=== PATIENT | male | born 1935 | race Caucasian/White ===

== ENCOUNTER → 2016-09-17 | Outpatient (CLI) | payer OTHER, BC ==
[~2016-09-17] MED LIST: AMT50 PO; ASPI-390 PO; ASPI325T45 PO; BUTA50TA6 PO; CLOB-65 EXT; CLOP1TAB15 PO; DOCU-94 PO; FINA5TAB PO; GLUCTAB18 PO; LOSA1TAB PO; LOSA1TAB38 PO; METO100T44 PO; MULT-506 PO; NTRGSL/4 UT; OMEP40CA36 PO; PRLSR20 PO; RST15 PO; SIMV40TA2 PO; TAMS0.4C38 PO; TEMA30CA4 PO
== END | disposition home or self-care (01) ==
LOC: C.RDSM 12:48
PROVIDERS: ATTEND Physical Medicine & Rehabilitation Sports Medicine
DX: Z47.1 Aftercare following joint replacement surgery (principal); Z96.651 Presence of right artificial knee joint

== ENCOUNTER → 2016-12-03 | Outpatient (CLI) | payer OTHER, BC ==
[~2016-12-03] MED LIST changes: -AMT50 PO; -BUTA50TA6 PO; -FINA5TAB PO; -GLUCTAB18 PO; -LOSA1TAB38 PO; -METO100T44 PO; +METO1TAB69 PO; -PRLSR20 PO; -TEMA30CA4 PO
[2016-12-03 18:08] LABS: BASO % 0.5 %; BASO ABS # 0.03 K/uL (0-0.2); COMPLETE YES; EOS % 1.7 %; HEMATOCRIT 38.2 % (42-52); IG% 0.2 %; LYMPH % 17.8 %; LYMPH ABS # 1.07 K/uL (1.2-3.4); MEAN CELL VOLUME 85.8 fL (80-100); MEAN CORPUSCULAR HGB CONC 33.8 g/dl (32-36); MEAN PLATELET VOLUME 10.5 fL (7.4-10.4); NEUT % 65.8 %; PLATELET COUNT 209 K/uL (130-400); RED BLOOD COUNT 4.45 M/uL (4.7-6.1); WHITE BLOOD COUNT 6.01 K/uL (4.8-10.8)
[2016-12-03 18:44] LABS: BLOOD UREA NITROGEN 19 mg/dl (7-18); CARBON DIOXIDE 28 mmol/L (21-32); CHLORIDE 107 mmol/L (98-107); GLUCOSE 92 mg/dl (70-99); SODIUM 142 mmol/L (136-145)
[2016-12-03 18:49] LABS: FERRITIN 20.5 ng/ml (8.0-388.0); PHOSPHORUS 2.5 mg/dl (2.5-4.9)
== END | disposition home or self-care (01) ==
LOC: C.LABMFLN 12:20
PROVIDERS: ATTEND Family Medicine
DX: D50.0 Iron deficiency anemia secondary to blood loss (chronic) (principal); I10 Essential (primary) hypertension

== ENCOUNTER → 2016-12-17 | Outpatient (CLI) | payer OTHER, BC ==
--- NOTE | 2016-12-17 12:04 | DIAGNOSTIC IMAGING REPORT ---
RIGHT SHOULDER MIN 2 VIEWS CLINICAL HISTORY: RIGHT SHOULDER PAIN Right pain COMPARISON: None. DISCUSSION: Moderate degenerative change right acromioclavicular joint. Minimal degenerative change glenohumeral joint. No acute bony abnormality. No abnormal soft tissue calcifications. There is no evidence for soft tissue swelling. IMPRESSION: Moderate degenerative change primarily of the acromioclavicular joint. No acute process. The above report was generated using voice recognition software. It may contain grammatical, syntax or spelling errors. Electronically signed by: Jamarcus Conrad M.D. 12/17/2016 12:03 PM Dictated Date/Time: 12/17/2016 12:02 PM
== END | disposition home or self-care (01) ==
LOC: C.RDSM 12:14
PROVIDERS: ATTEND Internal Medicine
DX: M25.511 Pain in right shoulder (principal)

== ENCOUNTER → 2017-03-18 | Outpatient (CLI) | payer OTHER, BC ==
[~2017-03-18] MED LIST changes: +AMT50 PO; +BUTA50TA6 PO; +FINA5TAB PO; +GLUCTAB18 PO; +LOSA1TAB38 PO; +METO100T44 PO; -METO1TAB69 PO; +PRLSR20 PO; +TEMA30CA4 PO
== END | disposition home or self-care (01) ==
LOC: C.RDSM 13:15
PROVIDERS: ATTEND Physical Medicine & Rehabilitation Sports Medicine
DX: M17.0 Bilateral primary osteoarthritis of knee (principal); Z96.651 Presence of right artificial knee joint; M25.511 Pain in right shoulder; M25.561 Pain in right knee; M25.562 Pain in left knee

== ENCOUNTER → 2017-04-23 | Day surgery (SDC) | payer OTHER, BC ==
[2017-03-28 14:16] VITALS: Ht 180.3 cm; Wt 90.0 kg
[2017-03-29 12:21] LABS: BASO % 0.3 %; BASO ABS # 0.02 K/uL (0-0.2); COMPLETE YES; EOS % 1.5 %; HEMATOCRIT 44.7 % (42-52); IG% 0.3 %; LYMPH ABS # 1.05 K/uL (1.2-3.4); MEAN CORPUSCULAR HEMOGLOBIN 29.3 pg (25-34); MEAN CORPUSCULAR HGB CONC 32.2 g/dl (32-36); MEAN PLATELET VOLUME 10.8 fL (7.4-10.4); MONO % 12.5 %; NEUT % 71.4 %; PLATELET COUNT 252 K/uL (130-400); RED BLOOD COUNT 4.91 M/uL (4.7-6.1); WHITE BLOOD COUNT 7.52 K/uL (4.8-10.8)
[2017-03-29 12:44] LABS: BUN/CREATININE RATIO 22.3 (10-20); CALCIUM 8.8 mg/dl (8.5-10.1); CREATININE 1.05 mg/dl (0.60-1.40); POTASSIUM 4.2 mmol/L (3.5-5.1)
[~2017-04-23] VITALS: Ht 180.3 cm; Wt 90.0 kg
[~2017-04-23] MED LIST changes: -ASPI-390 PO; -ASPI325T45 PO; +ATROPINE SULFATE 0.1 MG/ML 5ML SYR IV PRN; +BUPIVACAINE/EPINEPHRINE 0.5% MPF 1:200,000 30 ML VIAL ONE; +CEFAZOLIN 2000MG IV PUSH 10 ML IV SCH; -CLOB-65 EXT; +DEXAMETHASONE SOD INJ 4 MG/ML VIAL ONE; +EpHEDrine SULFATE 50MG/5ML SYR ONE; +EpHEDrine SULFATE INJ 50 MG/ML AMP IV PRN; +EpINEphrine HCL INJ 1 MG/ML 5ML SYRINGE ONE; +EpINEphrine INJ 1MG/ML AMP 1 MG/ML AMP ONE; +FENTANYL CITRATE INJ 50 MCG/1 ML 2 ML VIAL IV PRN; +FENTANYL CITRATE INJ 50 MCG/1 ML 2 ML VIAL ONE; +LACTATED RINGER'S 1000ML 1,000 ML IV SCH; +LIDOCAINE HCL 2% 2 ML VIAL (20MG/ML) ONE; -LOSA1TAB PO; +MIDAZOLAM HCL 1 MG/ML 2ML VIAL ONE; +MORPHINE SULFATE PF 2MG/2ML SYR ONE; -OMEP40CA36 PO; +ONDANSETRON INJ 2 MG/ML 2 ML VIAL IV PRN; +ONDANSETRON INJ 2 MG/ML 2 ML VIAL ONE; +OXYCODONE/ACETAMINOPHEN 5-325 TAB PO PRN; +PHENYLEPHRINE HCL INJ 10 MG/ML VIAL ONE; +PROPOFOL IV EMULSION 10 MG/ML 20 ML VIAL IV ONE; +ROPIVACAINE 0.5% 5 MG/ML 30 ML VIAL ONE; -RST15 PO; +SODIUM CHLORIDE 0.9% 1000ML 1,000 ML IV SCH
--- NOTE | 2017-04-23 07:57 | History & Physical Bridge Note ---
H&P Re-Evaluation Bridge Note: I have examined the patient, reviewed the History & Physical and in the interval since the performance of the History & Physical I have noted the following changes of clinical significance: consent reviewed/obtained.No changes noted
--- NOTE | 2017-04-23 07:59 | Discharge Instructions ---
Discharge Instructions Date of Service Apr 23, 2017. Visit Reason for Visit: Right Shoulder Rotator Cuff & Biceps Tears, Imping Discharge Discharge Diagnosis / Problem: same Discharge Goals Goal(s): Decrease discomfort, Improve function, Increase independence Medications Stopped Medications Name(s): Plavix stopped 04/17 Restart Stopped Medication(s): resume all scripts today Activity Recommendations Activity Limitations: as noted below Lifting Limitations: until after follow-up appointment Exercise/Sports Limitations: until after follow-up appointment May Resume Sexual Activity: when tolerated Shower/Bathe: keep incision dry Driving or Machine Use: Anesthesia . Post Anesthesia Instructions: If you have had General Anesthesia or IV Sedation: * Do not drive today. * Resume driving when surgeon permits. * Do not make important decisions or sign legal documents today. * Call surgeon for: 1. Temperature elevations greater than 101 degrees F. 2. Uncontrollable pain. 3. Excessive bleeding. 4. Persistent nausea and vomiting. 5. Medication intolerance (nausea, vomiting or rash). * For nausea and vomiting use only clear liquids such as: tea, soda, bouillon until nausea subsides, then gradually increase diet as tolerated. * If you have any concerns or questions, call your surgeon's office. If physician is unavailable and it is an emergency, call 911 or go to the nearest emergency room. . Instructions / Follow-Up Instructions / Follow-Up The following are instructions to follow after "Shoulder Surgery" including, Acromioplasty, Rotator Cuff Repair and Instability Surgery ACTIVITY RECOMMENDATIONS: * Minimize activity after surgery. * No excessive walking, jogging, sports or laboring. * Return to activity is individualized depending on the patient and type of surgery. * Driving is not permitted until at least your first post operative visit. Please ask your doctor when it is safe to resume driving. * Expect increased discomfort with increased activity. Continue to ice the shoulder as needed. SCHOOL/WORK RECOMMENDATIONS: * You may return to sedentary work or school when you are feeling more comfortable. This is usually 3-7 days after surgery. MEDICATIONS: * You will have a prescription for pain medication and an anti-inflammatory medication after surgery. * Use the pain medication for severe pain and the anti-inflammatory for less severe pain. Once the pain medication has run out, try to use the anti-inflammatory medication. If this is not effective, contact the office for assistance. * The pain medication may cause nausea, constipation and drowsiness. You should see how they affect you before driving or similar activity. * The anti-inflammatory medication may cause stomach upset and bleeding. If this occurs let your doctor know immediately . * Take a stool softener like Colace or a laxative like Senokot to prevent constipation. DIET: * Resume previous diet. SPECIAL CARE: ICE: You have the option of an ice cooler, gel packs or ice bags. * If you have an ice cooler, refer to the instructions for that device. The ice cooler may be used continuously. * If you do not have an ice cooler, you will need to use ice bags or gel packs. Do not apply ice directly to the skin. Use a thin dressing or lucas shirt between the skin and ice bag. Apply ice for 20-30 minutes and repeat every 2-4 hours. This is especially important for the first 7-10 days after surgery. Once the pain improves, use ice as needed. ELEVATION: * You may be more comfortable sleeping in an upright position. Use the sling to elevate your arm. DRESSING: * Your dressing will be changed at your first therapy appointment approximately 4-5 days after surgery. Band-aids, tape strips or gauze may be applied. You may then change your dressing daily. * Reapply dressing followed by the EBIce cooling pad (if chosen) and then the sling. * Always wash your hands prior to touching the incision area. * Once the stitches are removed, you may leave the wound open to air or cover with gauze. * Expect some bloody drainage for the first few days after surgery. * Leave the tape strips, if present, in place for 5-7 days. * Band-aids and gauze may be changed daily. * There may be a gauze pad in your armpit area. This can be changed daily or replaced by a dry washcloth. SLING/BRACE: * You will need to use a sling or brace after surgery. The length of time the sling is used is dependent upon the type of surgery performed. * Arthroscopic Acromioplasty requires use of the sling for 2-4 weeks for comfort. * Labral procedures and Rotator Cuff Repairs require use of the sling for a longer period of time. Please check with your doctor prior to discontinuing the sling. BATHING: * You may shower or sponge-bathe immediately after surgery. The post operative shoulder dressing is mostly water-tight. You may shower right over this dressing, but be reasonably careful not to get the gauze or incision wet. * Once the dressing has been changed on the fourth or fifth day after surgery, you may shower and get the incision wet. * Wash with regular soap and water. * Do not bathe (submerge the incision), soak, swim or use a hot tub until the incision is completely healed over with normal skin and the doctor has given the OK to proceed. * There is no need to apply any ointments, powders or salves to your incision. * Do not apply alcohol or hydrogen peroxide directly to the incision. * Diluted peroxide (50:50 mixture with sterile saline) may be used to clean dried blood from around the incision area. THERAPY: * You will begin therapy four or five days after surgery. * Organized therapy with the therapist is important for the first 2-4 months after surgery depending on the type of procedure. During that time you will attend therapy 1-3 times per week. * You will also need to do daily exercises for range of motion and strength as instructed. * Patients who have a Capsular Shift Procedure will need to abide by temporary range of motion limitations. * Patients having Rotator Cuff Surgery are not allowed to actively lift their arms until 4-6 weeks after surgery. * Please check with your doctor regarding appropriate motion restrictions. FOLLOW UP VISIT: * If not already scheduled, please call the office at to schedule a follow-up appointment for 10 days after surgery and monthly thereafter. Diet Recommendations Recommended Home Diet: resume previous diet Procedures Procedures Performed: see op note Pending Studies Studies pending at discharge: no Medical Emergencies . Who to Call and When: Medical Emergencies: If at any time you feel your situation is an emergency, please call 911 immediately. . Non-Emergent Contact Non-Emergency issues call your: Specialist Call Non-Emergent contact if: temperature is above 101.5, wound has increased drainage, wound has increased redness, wound has increased pain . . "Provider Documentation" section prepared by Roberto Marks. .
--- NOTE | 2017-04-23 10:06 | [facility] Post Operative Brief Note ---
Immediate Operative Summary Operative Date Apr 23, 2017. Pre-Operative Diagnosis Right Shoulder Rotator Cuff and Biceps Tears, Impingement Post-Operative Diagnosis Same Procedure(s) Performed arthrscopy SAD/distal clavicle excision/biceps tenotomy/small rotator cuff repair Surgeon Dr. Fortunato Marks Plant Protection Guard Surgeon(s) Lana Walter PA-C Estimated Blood Loss trace Findings see op note Fluids (cc crystalloids) 1200cc Specimens none Drains none Anesthesia LMA/block Complication(s) None Disposition Recovery Room / PACU
--- NOTE | 2017-04-23 10:23 | OPERATIVE REPORT ---
DATE OF OPERATION: 04/23/2017 SURGEON: Dr. Roberto Marks. ALTERATION MANAGER: Balbir Walter PA-C. No resident or fellow available. 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 POSTOPERATIVE DIAGNOSES: Same. OPERATION PERFORMED: 1. Examined under anesthesia. 2. Diagnostic arthroscopy. 3. Arthroscopic subacromial decompression with excision distal clavicle. 4. Arthroscopic biceps tenotomy and debridement. 5. Arthroscopic small rotator cuff repair. PERIOPERATIVE SITUATION: Medically cleared male with intractable shoulder pain with arm pain going all the way down the distal arm in the region of the biceps. Physical exam, x-ray and MRI scan consistent with the above diagnosis. DESCRIPTION OF PROCEDURE: The patient appropriately identified, site verified, consent verified, 2 grams of Ancef confirmed as being given. The right upper extremity was examined revealing no instability and excellent range motion for an 81-year-old male. He was then carefully placed in a beach chair position and right upper extremity prepped and draped in usual routine fashion. A posterior portal made 2 cm medial and inferior to posterolateral tip of the acromion and anterior portal made just off the edge of the AC joint. The joint was entered. There was a large partial nearly complete tear of the biceps tendon with marked fraying, This was all debrided and then the remnant released. The rotator cuff area was then marked with a needle and debrided. The articular surfaces were relatively healthy. The remaining labrum was relatively healthy. Subacromial space was then entered and a bursectomy completed. There was a large spur off the anteromedial aspect of the acromion. This was all flat now. After the CA ligament was released and the undersurface of the acromion dissected and then burred and then burred from the straight anterior portal was well. Did not excise an excessive amount and the posterior superior capsule was left alone. The rotator cuff was then debrided was a very unusual tear with a combined delamination bursal sided tear, this was all debrided and then 3 sutures placed and 2 anchors placed, 4 75 anchors with excellent purchase. This tagged down the tendon back to the most medial aspect of the insertion. Remaining cartilage was then microfractured in the area to promote healing. The procedure was then terminated. All instruments and fluid removed. The portals closed with 4-0 nylon, dressed with Xeroform, 4 x 4 gauze, ABD pads and Ioban dressing. ESTIMATED BLOOD LOSS: Trace. CRYSTALLOID: 1200 mL. I attest to the content of the Intraoperative Record and any orders documented therein. Any exception s are noted below.
[2017-04-23 10:56] VITALS: TEMP 36.1
--- NOTE | 2017-04-23 11:17 | Anesthesia Progress Nt - [facility] ---
Anesthesia Post Op Note Date & Time Apr 23, 2017 at 11:17 Vital Signs Pain Intensity: 0 Vital Signs Past 12 Hours Date Time Temp Pulse Resp B/P (MAP) Pulse Ox O2 Delivery O2 Flow Rate FiO2 04/23/17 10:56 36.1 58 16 118/65 (82) 96 Room Air 04/23/17 10:48 69 16 04/23/17 10:48 69 16 95 04/23/17 10:47 66 18 04/23/17 10:47 66 18 95 04/23/17 10:46 111/53 04/23/17 10:45 36.4 64 18 115/79 95 Room Air 04/23/17 10:42 65 19 115/79 97 04/23/17 10:42 66 19 04/23/17 10:37 67 13 04/23/17 10:37 65 13 100 04/23/17 10:36 122/62 04/23/17 10:32 60 20 04/23/17 10:32 61 20 100 04/23/17 10:31 117/65 04/23/17 10:27 62 17 100 04/23/17 10:27 64 17 04/23/17 10:26 64 24 04/23/17 10:26 65 24 117/67 98 04/23/17 10:21 29 04/23/17 10:21 70 29 129/68 04/23/17 10:17 127/66 04/23/17 10:16 36.4 63 20 127/66 99 Diffusion Mask 6 04/23/17 09:01 133/70 04/23/17 09:00 61 04/23/17 09:00 61 13 99 04/23/17 08:56 128/69 04/23/17 08:55 63 18 98 04/23/17 08:55 62 04/23/17 08:51 133/73 04/23/17 08:50 66 04/23/17 08:50 68 9 98 04/23/17 08:49 67 10 100 04/23/17 08:49 67 10 100 04/23/17 08:49 55 14 121/68 (85) 97 Mask 6 04/23/17 08:49 66 04/23/17 08:49 66 04/23/17 08:46 121/65 04/23/17 08:46 121/65 04/23/17 08:44 58 10 99 04/23/17 08:44 58 10 99 04/23/17 08:44 56 04/23/17 08:44 56 04/23/17 08:41 133/74 04/23/17 08:41 133/74 04/23/17 08:39 54 10 99 04/23/17 08:39 54 04/23/17 08:39 54 04/23/17 08:39 54 10 99 04/23/17 08:36 122/70 04/23/17 08:36 122/70 04/23/17 08:34 57 10 121/68 99 04/23/17 08:34 56 04/23/17 08:34 56 04/23/17 08:34 57 10 121/68 99 04/23/17 07:57 36.4 72 20 137/72 (93) 97 Room Air Notes Mental Status: alert / awake / arousable, participated in evaluation Pt Amnestic to Procedure: Yes Nausea / Vomiting: adequately controlled Pain: adequately controlled Airway Patency, RR, SpO2: stable & adequate BP & HR: stable & adequate Hydration State: stable & adequate Anesthetic Complications: no major complications apparent
[2017-04-23 11:47] VITALS: BP 102/60; PULSE 58; O2SAT 96
--- NOTE | 2017-04-23 13:30 | [facility] Operative Report ---
Operative Report Operative Date Apr 23, 2017. Pre-Operative Diagnosis Right Shoulder Rotator Cuff and Biceps Tears, Impingement Post-Operative Diagnosis Same Procedure(s) Performed arthroscopy SAD/distal clavicle excision/biceps tenotomy/small rotator cuff repair Surgeon Dr. Fortunato Marks Virology Teacher Surgeon(s) Lana Walter PA-C Estimated Blood Loss trace Findings Right shoulder rotator cuff tear, biceps tendinopathy, and impingement. Fluids (cc crystalloids) 1200cc Specimens none Drains none Complication(s) None Disposition Recovery Room / PACU Indications This 82-year-old white male presented to the office with complaints of right shoulder pain. He had tried conservative care measures without success. Pain was affecting his ADLs. He was losing motion and strength. He elected to proceed with surgical intervention in hopes of alleviating his complaints. Preoperative imaging was obtained. Description of Procedure Patient was administered a regional block and then taken to the operating room where he was given general anesthesia. He was prepped and draped in usual sterile fashion. Please see Dr. Marks's operative report for specifics of the procedure. I was present for the entire case from initial patient positioning through final wound closure. Assistance was provided in patient positioning, arthroscopy, hardware placement, and final wound closure. Patient was taken to the recovery room in satisfactory condition. I attest to the content of the Intraoperative Record and any orders documented therein. Any exceptions are noted below.
== END | disposition home or self-care (01) ==
LOC: X.SURG 07:26
PROVIDERS: ATTEND Physical Medicine & Rehabilitation Sports Medicine
DX: M75.42 Impingement syndrome of left shoulder (principal); M75.22 Bicipital tendinitis, left shoulder; M75.102 Unspecified rotator cuff tear or rupture of left shoulder, not specified as traumatic; I25.10 Atherosclerotic heart disease of native coronary artery without angina pectoris; M19.90 Unspecified osteoarthritis, unspecified site; I10 Essential (primary) hypertension; I71.4 Abdominal aortic aneurysm, without rupture; N40.0 Benign prostatic hyperplasia without lower urinary tract symptoms; I25.2 Old myocardial infarction; Z85.828 Personal history of other malignant neoplasm of skin; Z90.49 Acquired absence of other specified parts of digestive tract; Z98.61 Coronary angioplasty status; Z96.659 Presence of unspecified artificial knee joint; Z82.49 Family history of ischemic heart disease and other diseases of the circulatory system

== ENCOUNTER → 2017-06-10 | Outpatient (CLI) | payer OTHER, BC ==
[~2017-06-10] MED LIST changes: -ATROPINE SULFATE 0.1 MG/ML 5ML SYR IV PRN; -BUPIVACAINE/EPINEPHRINE 0.5% MPF 1:200,000 30 ML VIAL ONE; -CEFAZOLIN 2000MG IV PUSH 10 ML IV SCH; -DEXAMETHASONE SOD INJ 4 MG/ML VIAL ONE; -EpHEDrine SULFATE 50MG/5ML SYR ONE; -EpHEDrine SULFATE INJ 50 MG/ML AMP IV PRN; -EpINEphrine HCL INJ 1 MG/ML 5ML SYRINGE ONE; -EpINEphrine INJ 1MG/ML AMP 1 MG/ML AMP ONE; -FENTANYL CITRATE INJ 50 MCG/1 ML 2 ML VIAL IV PRN; -FENTANYL CITRATE INJ 50 MCG/1 ML 2 ML VIAL ONE; -LACTATED RINGER'S 1000ML 1,000 ML IV SCH; -LIDOCAINE HCL 2% 2 ML VIAL (20MG/ML) ONE; -MIDAZOLAM HCL 1 MG/ML 2ML VIAL ONE; -MORPHINE SULFATE PF 2MG/2ML SYR ONE; -ONDANSETRON INJ 2 MG/ML 2 ML VIAL IV PRN; -ONDANSETRON INJ 2 MG/ML 2 ML VIAL ONE; -OXYCODONE/ACETAMINOPHEN 5-325 TAB PO PRN; -PHENYLEPHRINE HCL INJ 10 MG/ML VIAL ONE; -PROPOFOL IV EMULSION 10 MG/ML 20 ML VIAL IV ONE; -ROPIVACAINE 0.5% 5 MG/ML 30 ML VIAL ONE; -SODIUM CHLORIDE 0.9% 1000ML 1,000 ML IV SCH
== END | disposition home or self-care (01) ==
LOC: C.RDSM 13:00
PROVIDERS: ATTEND Physical Medicine & Rehabilitation Sports Medicine
DX: M75.121 Complete rotator cuff tear or rupture of right shoulder, not specified as traumatic (principal)